=== PATIENT | female | born 1985 | race Caucasian/White ===

== ENCOUNTER → 2018-11-04 14:02 | Outpatient (CLI) | payer OTHER, SELFPAY ==
[2018-11-04 14:15] LABS: Bacteria Urine None Seen; RBC Urine None Seen (0-5/HPF); WBC Urine None Seen (0-5/HPF)
[2018-11-04 14:51] LABS: Hematocrit 39.1 % (36-46); Hemoglobin 13.2 g/dL (12.0-16.0); Mean Corpuscular HGB Conc 33.8 % (30-36); Mean Corpuscular Hemoglobin 27.7 PG (26-34); Mean Corpuscular Volume 81.9 fL (80-100); Platelet Count 252 X10^3/uL (150-400); Red Blood Cell Count 4.78 X10^6/uL (4.0-5.2); Red Cell Distribution Width 12.6 % (11.6-14.8); White Blood Cell Count 12.8 X10^3/uL (4.5-11.0)
[2018-11-04 15:18] LABS: Free T4, Direct Thyroxine 1.28 ng/dL (0.78-2.19)
[2018-11-04 15:32] LABS: Thyroid Stimulating Hormone 0.18 uIU/mL (0.47-4.68)
[2018-11-04 15:46] LABS: Appearance Urine UA CLEAR; Bilirubin Urine UA NEGATIVE (NEGATIVE); Color Urine UA YELLOW; Glucose Urine UA NEGATIVE (Negative); Ketones Urine UA NEGATIVE (NEGATIVE); Leukocyte Esterase Urine UA NEGATIVE (NEGATIVE); Nitrite Urine UA NEGATIVE (Negative); Occult Blood Urine UA NEGATIVE (Negative); Protein Urine UA NEGATIVE (Negative); Urobilinogen Urine UA 0.2 E.U./dL (0.2)
[2018-11-04 15:54] LABS: Culture Indicated Urine Cult Not Indicated; Urine Comments Microscopic Normal
[2018-11-04 16:41] LABS: Urine N gonorrhoeae NOT DETECTED
[2018-11-04 17:28] LABS: Hepatitis B Surface Antigen NEGATIVE s/c (NEGATIVE); Rubella Antibody IgG 24.1 IU/mL (>15)
[2018-11-04 17:39] LABS: HIV 1 and 2 Antibody NEGATIVE (NEGATIVE)
[2018-11-04 17:57] LABS: Urine Chlamydia NOT DETECTED
[2018-11-06 14:06] LABS: RPR Screen Nonreactive (Nonreactive)
== END ==
PROVIDERS: Visit Provider Nurse Practitioner Obstetrics & Gynecology
DX: Z34.80 Encounter for supervision of other normal pregnancy, unspecified trimester (principal); Z34.00 Encounter for supervision of normal first pregnancy, unspecified trimester
CPT/HCPCS: 36415; 81001; 84439; 84443; 85027; 86592; 86703; 86762; 86765; 86850; 86900; 86901; 87340; 87491; 87591

== ENCOUNTER → 2019-05-06 13:20 | Outpatient (CLI) | payer OTHER, SELFPAY | PROVIDERS: Visit Provider Nurse Practitioner Obstetrics & Gynecology | DX: Z34.83 Encounter for supervision of other normal pregnancy, third trimester (principal) | CPT/HCPCS: 87081; 87147 ==

== ENCOUNTER 2019-06-04 15:22 | Inpatient (IN) | payer OTHER, SELFPAY ==
--- NOTE | 2019-06-04 15:36 | PM.OBHP.1 ---
OB HPI History of Present Condition Chief complaint: Obs Narrative: Tanja Govea is a 33 year old female, @ [id number] by sure LMP, concordant w/ 8wj US presents for evaluation of labor. Has been having stronger, irregular ctx since yesterday. Was seen in clinic w/ membranes swept this morning and ctx have gotten progressively stronger since, now breathing through them. +FM. No VB or LOF. Uncomplicated PN care w/ CNMs. 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 CL was stable and pt resumed ful CNM PN care. Plans low intervention . [facility] Medical History (Updated 06/04/19 @ 15:42 by Malissa Escobar CNM) History of cervical cancer (Acute) Surgical History (Updated 06/04/19 @ 15:43 by Malissa Escobar CNM) Hx of LASIK (Acute) Family History (Updated 06/04/19 @ 15:44 by Malissa Escobar CNM) Mother Thyroid disorder Father Hypertension Social History (Updated 06/04/19 @ 15:45 by Malissa Escobar CNM) marital status: number of children: 1 household members: spouse lives independently: Yes housing: house education level: college occupational status: employed current occupational exposures/hazards: No do you feel safe at home: Yes Smoking Status: Never smoker well-balanced diet: daily or most days daily servings fruits/ve or more times/day Type(s) of exercise: walking frequency: 3-4 times per week Family History (Updated 06/04/19 @ 15:44 by Malissa Escobar CNM) Mother Thyroid disorder Father Hypertension Social History (Updated 06/04/19 @ 15:45 by Malissa Escobar CNM) marital status: number of children: 1 household members: spouse lives independently: Yes housing: house education level: college occupational status: employed current occupational exposures/hazards: No do you feel safe at home: Yes Smoking Status: Never smoker well-balanced diet: daily or most days daily servings fruits/ve or more times/day Type(s) of exercise: walking frequency: 3-4 times per week Meds Home Medications and Allergies Home Medications Medication Instructions Recorded Confirmed Type 06/04/19 History Allergies Allergy/AdvReac Type Severity Reaction Status Date / Time No Known Drug Allergies Allergy Verified 06/04/19 15:47 Review of Systems Review of Systems ROS Unobtainable: All systems reviewed & are unremarkable except as noted in HPI and below Exam Vital Signs (past 8 hours): HR-109, BP-114/76, T98.6F Temporal Narrative Exam Narrative: brreathing through regular ctx, smiling between contractions FHR-baseline 135bpm, moderate variability, no accels, 2 small variables, kelvin to 100, rapid return to baseline, lasting <60 seconds. Ctx Q2-3.5 minutes, lasting 60-80 seconds, moderate Resp Effort & Inspection: normal respiratory effort and able to speak in complete sentences Auscultation: clear to auscultation bilaterally Cardio Rate: regular rate Heart Sounds: S1 normal and S2 normal Manual OB Exam: dilated 6, effaced fully, station -2 and other (BBOW) Uterus Location (Fundal Height): 38 Presentation: vertex Estimated Weight (lbs): 8 Objective Labs Labs: ABO/Rh-O positiv, AB screen-negative, Rubella-Immune, RPR-NR, HIV-negative, GC/CT-negative/negative, Hep BsAg-Neg; 02/17/19: Hgb-15, Hct-36, Plt-157, 1hr gtt-75; 04/14/19: TSH-0.72 Assessment and Plan Assessment and Plan Assessment and Plan narrative: Term multipara Active labor GBS prophylaxis indicated Cat II FHR, overall reassuring P: Admit, routine orders w/ PCN for GBS, labor support PRN. notified of pt admit status and POC, as a courtesy.
[2019-06-04] MEDS: PENICILLIN G POTASSIUM 5,000,000 UNIT in DEXTROSE 5% IN WATER 250 ML IV (16:06)
[2019-06-04 16:41] LABS: Add Manual Diff / Slide Review NO; Basophils Absolute Auto 100 /uL (0-100); Basophils Percent Auto 0.3 % (0-2); Eosinophils Absolute Auto 100 /uL (0-450); Eosinophils Percent Auto 0.4 % (2-4); Hematocrit 36.3 % (36-46); Hemoglobin 12.2 g/dL (12.0-16.0); Lymphocytes Absolute Auto 2200 /uL (1100-4500); Lymphocytes Percent Auto 10.9 % (25-40); Mean Corpuscular HGB Conc 33.5 % (30-36); Mean Corpuscular Hemoglobin 26.8 PG (26-34); Mean Corpuscular Volume 79.9 fL (80-100); Monocytes Absolute Auto 1300 /uL (0-900); Monocytes Percent Auto 6.7 % (3-14); Neutrophils Absolute Auto 16300 /uL (1500-7000); Neutrophils Percent Auto 81.7 % (50-75); Platelet Count 180 X10^3/uL (150-400); Red Blood Cell Count 4.54 X10^6/uL (4.0-5.2); Red Cell Distribution Width 13.8 % (11.6-14.8); White Blood Cell Count 19.9 X10^3/uL (4.5-11.0)
[2019-06-04] MEDS: OXYTOCIN 10 UNIT/ML VIAL IM (19:03)
--- NOTE | 2019-06-04 19:36 | PM.OBPRVD ---
Labor & Delivery Delivery date: 06/04/19 Intrapartal events: None Cervical ripening method: none Induction method: none Delivery monitor: external FHT Route of delivery: L&D Laceration Description: Perineal - 1st Degree Delivery repair: chromic Estimated blood loss (mL): 400 Anesthesia type: Other (Nitrous Oxide) Narrative: Pt labored well in tub and on ball at bedside, utilized nitrous oxide intermittently for approximately 1 hour and then felt spontaneous urge to push. SROM, clear fluid at 1825 and was presumed to be complete. Pt was assisted to bed and pushed well with coaching and encouragement. NSVB of a vigorous baby boy at 1851 w/ easy delivery of the shoulders and sommersaulted through a double tight nuchal cord. [place] was lifted to maternal abdomen by FOB and CNM. 10 units of pitocin was given IM in RVL for active management of the third stage of labor. After cessation of pulsation, the cord was double clamped and cut and a hospital cord blood hold sample was collected. Gentle cord traction and maternal push led to spontaneous, Schultze delivery of an apparently intact placenta, membranes and 3VC. Fundus massaged firm and bleeding minimal. Inspection revealed a 1st degree perineal laceration that was repaired w/ 3.0 Chromic in the usual fashion, under 1% lidocaine local. Fundus remained firm with minimal bleeding. QBL 400mL. Both mother and baby stable as I left the room. Baby 1: gender: Male Presentation: vertex position: Right Occiput Anterior Placenta delivery description: Spontaneous cord vessel description: Nuchal Cord score (1 min): 8 score (5 min): 9 Plan for aftercare: Routine PP orders. Anticipate d/c to home in 36-48 hours for GBS inadequately treated.
[2019-06-04] MEDS: KETOROLAC 30 MG/ML VIAL IV (21:49)
[2019-06-04] MEDS: LANOLIN OINT 7 GM 1 APPLIC TOP (21:50)
[2019-06-05] MEDS: PRENATAL VIT,CALC/IRON/FOLIC 1 TABLET 1 TAB PO (09:36)
[2019-06-05] MEDS: DOCUSATE 250 MG CAPSULE PO (09:37)
[2019-06-05 10:02] VITALS: TEMP 37.7
[2019-06-05] MEDS: IBUPROFEN 600 MG TABLET PO ×2 (10:02→21:08)
[2019-06-05 11:44] VITALS: BP 114/76
--- NOTE | 2019-06-05 15:05 | P.PNOB_ITS ---
Subjective - OB Subjective Patient comments: no complaints and pain well controlled Independence baby status: doing well and nursing well feeding status: exclusively breast feeding Narrative: Pt sitting up in bed, nursing her son, feeling well. Voiding and ambulating independently. Minimal bleeding, no clots. Tolerating general diet. Denies pain. Eager for discharge tomorrow. Supportive at bedside. Date Patient Seen: 06/05/19 Time Patient Seen: 14:30 Exam Vital Signs (past 8 hours): - 06/05/19 10:02 06/05/19 11:44 Temperature 99.8 F H Blood Pressure 114/76 Narrative Exam Narrative: Fundud firm at U, lochia-scant rubra Breasts- nipples intact, no redness or tenderness Objective Labs Result Diagrams: 06/04/19 15:50 Labs: Laboratory Results - last 24 hr 06/04/19 06/04/19 15:50 15:50 WBC 19.9 H RBC 4.54 Hgb 12.2 Hct 36.3 MCV 79.9 L MCH 26.8 MCHC 33.5 RDW 13.8 Plt Count 180 Neut % (Auto) 81.7 H Lymph % (Auto) 10.9 L Schley % (Auto) 6.7 Eos % (Auto) 0.4 L Baso % (Auto) 0.3 Neut # (Auto) 40658 H Lymph # (Auto) 2200 Schley # (Auto) 1300 H Eos # (Auto) 100 Baso # (Auto) 100 Blood Type O Positive Antibody Screen Negative Assessment & Plan Plan day: 1 plan OB: routine care Comments: Anticipate discharge to home in AM Time Spent With Patient Time: Total time spent is greater than 50% in coordination of care (as documented) at patient's floor/unit and/or counseling patient: Time with patient: 15-24 minutes
--- NOTE | 2019-06-06 06:53 | PM.OBDS.1 ---
Discharge Providers Provider Date of admission: 06/04/19 15:22 Discharge Date: 06/06/19 Consults: 06/04/19 19:20 Consult to [employer] Routine Comment: Discharge provider: Malissa Escobar CNM Summary Discharge Diagnosis (1) Elevated blood pressure reading without diagnosis of hypertension: Status: Acute (2) First degree perineal laceration during delivery: Status: Acute Time Spent with Patient Time attestation: Total time spent providing and/or coordinating discharge services: Objective Labs Result Diagrams: 06/04/19 15:50 Exam Vital Signs (past 8 hours): BP 136/76, HR-80, RR-16, T-99.0F Temporal Other: FH @ U-1, Lochia scant rubra, perienum well approximated Discharge Plan Discharge Plan Patient Disposition: Home Discharge Med Rec/Prescriptions Prescriptions: New acetaminophen 325 mg Tablet 650 mg PO Q6HR PRN (Reason: Pain, Mild (1-3)) 14 Days Qty: 60 RF: 0 ibuprofen 600 mg Tablet 600 mg PO Q6HR PRN (Reason: Pain, Mild (1-3)) 14 Days Qty: 60 RF: 0 docusate sodium 250 mg Capsule 250 mg PO DAILY 14 Days Qty: 14 RF: 0 Tul-V-Rwbnih Cream 1 applic topical PRN PRN (Reason: Tenderness) 30 Days Qty: 20 RF: 0 Continued 1 tab PO DAILY RF: 0 Follow up/Referrals: Malissa Escobar CNM [Advanced Technical Support Manager] - 1 Week (Patient to schedule in 1-2 weeks, same day as circumcision) Provider Discharge Instructions Diet: Diet as Tolerated and Regular Activity: increase as tolerated. Pelvic rest x 6 weeks. Skin/Wound/Dressing Care Report to your healthcare provider any signs of infection, such as:: chills, fever and increased pain Visit Report/Discharge Packet Instructions: Depression
[2019-06-06] MEDS: IBUPROFEN 600 MG TABLET PO (07:35)
[2019-06-06] MEDS: ACETAMINOPHEN 325 MG TABLET 650 MG PO (07:38)
[2019-06-06] MEDS: DERMOPLAST SPRAY 20% 60 ML 1 SPRAY TOP (07:45)
[2019-06-06] MEDS: DOCUSATE 250 MG CAPSULE PO (07:46)
[2019-06-06 09:48] VITALS: BP 130/79; PULSE 115; RESP 18; TEMP 37
== END 2019-06-06 11:35 | disposition home or self-care (01) | DRG 807 ==
PROVIDERS: Admitting Provider Nurse Practitioner Obstetrics & Gynecology; Visit Provider Nurse Practitioner Obstetrics & Gynecology
DX: O99.824 Streptococcus B carrier state complicating childbirth (principal); Z37.0 Single live birth; Z3A.39 39 weeks gestation of pregnancy; R03.0 Elevated blood-pressure reading, without diagnosis of hypertension; O70.0 First degree perineal laceration during delivery; O69.81X0 Labor and delivery complicated by cord around neck, without compression, not applicable or unspecified
CPT/HCPCS: 59050; 85025; 86850; 86900; 86901; G0379; J1885; J2540; J2590